=== PATIENT | male | born 1970 | race Caucasian/White ===

== ENCOUNTER 2024-06-16 19:36 | Inpatient (IN) | payer OTHER ==
[~2024-06-16] VITALS: Ht 180.3 cm; Wt 100.0 kg
[2024-06-16] MEDS: ASPIRIN 81MG TABLET PO ONE (19:56)
[2024-06-16] MEDS: NITROGLYCERIN 0.4MG TABLET SL SL PRN (19:56)
[2024-06-16] MEDS: SODIUM CHLORIDE 0.9% 1,000 ML IV ONE (19:56)
[2024-06-16] MEDS: ONDANSETRON HCL 4MG/2ML INJ IV STA (19:56)
[2024-06-16 20:13] LABS: BASOPHILS % 0.7 % (0.0-2.0); HEMATOCRIT. 45.2 % (42.0-52.0); HEMOGLOBIN. 15.5 g/dL (14.0-18.0); LYMPHOCYTES % 27.5 % (20.0-50.0); MEAN CORPUSCULAR HGB CONC 34.3 g/dL (31.0-37.0); MEAN CORPUSCULAR VOLUME 90.5 fL (80.0-94.0); MEAN PLATELET VOLUME 8.2 fl (7.4-10.4); MONOCYTES % 5.6 % (2.0-8.0); NEUTROPHILS % 65.2 % (40.0-76.0); PLATELET 255 x1000/uL (130-400); RED CELL DISTRIBUTION WIDTH 13.1 % (11.6-14.6)
[2024-06-16 20:18] LABS: CHLORIDE 105 mEq/L (98-107); POTASSIUM 3.5 mEq/L (3.5-5.1); SODIUM 140 mEq/L (136-145)
[2024-06-16 20:19] LABS: CARBON DIOXIDE 25 mEq/L (21-32)
[2024-06-16 20:24] LABS: CREATININE 1.2 mg/dL (0.6-1.3); GLUCOSE 124 mg/dL (70-105); UREA NITROGEN BLOOD 14 mg/dL (9-23)
[2024-06-16 20:28] LABS: TROPONIN I HIGH SENSITIVITY < 4 ng/L (3.0-53)
[2024-06-16 20:30] LABS: PARTIAL THROMBOPLASTIN TIME 27.3 sec (23.4-31.0); PROTHROMBIN TIME 11.2 sec (9.6-11.0)
[2024-06-16] MEDS: IOHEXOL-350 100 ML BOTTLE ONE (21:08)
[2024-06-16 22:07] LABS: TROPONIN I HIGH SENSITIVITY 4 ng/L (3.0-53)
[2024-06-16] MEDS ORDERED: NA PHOS,M-B/NA PHOS,DI-BA ENEMA 118ML PR PRN (23:30)
[2024-06-16] MEDS ORDERED: NITROGLYCERIN 0.4MG TABLET SL SL PRN (23:30)
[2024-06-16] MEDS ORDERED: CLONIDINE 0.1MG TABLET PO PRN (23:30)
[2024-06-16] MEDS ORDERED: ONDANSETRON HCL 4MG/2ML INJ IV PRN (23:30)
[2024-06-16] MEDS ORDERED: DOCUSATE SODIUM 100MG CAPSULE PO PRN (23:30)
[2024-06-16] MEDS ORDERED: MAGNESIUM/ALUMINUM HYDROXIDE/SIMETHICONE 30ML UDC PO PRN (23:30)
[2024-06-16] MEDS ORDERED: DEXTROSE 50% WATER 50ML SYRINGE IV PRN (23:30)
[2024-06-16] MEDS ORDERED: IPRATROPIUM/ALBUTEROL 0.5-3(2.5)MG/3ML NEB HHN PRN (23:30)
[2024-06-16] MEDS ORDERED: GUAIFENESIN 200MG/10ML SUGAR FREE UDC PO PRN (23:30)
[2024-06-17 01:02] LABS: PHOSPHORUS 2.3 mg/dL (2.5-4.9)
[2024-06-17 01:41] LABS: TROPONIN I HIGH SENSITIVITY < 4 ng/L (3.0-53)
[2024-06-17 03:13] LABS: BASOPHILS % 0.7 % (0.0-2.0); EOSINOPHILS % 0.7 % (0.0-5.0); LYMPHOCYTES % 24.5 % (20.0-50.0); MEAN CORPUSCULAR HEMOGLOBIN 30.8 pg (28.0-32.0); MEAN CORPUSCULAR HGB CONC 34.2 g/dL (31.0-37.0); MEAN CORPUSCULAR VOLUME 90.2 fL (80.0-94.0); MONOCYTES % 7.9 % (2.0-8.0); NEUTROPHILS % 66.2 % (40.0-76.0); PLATELET 258 x1000/uL (130-400); RED BLOOD CELL COUNT 4.88 mill/uL (4.7-6.1); RED CELL DISTRIBUTION WIDTH 13.1 % (11.6-14.6); WHITE BLOOD COUNT 9.1 x1000/uL (4.5-11.0)
[2024-06-17 03:24] LABS: CALCIUM 8.6 mg/dL (8.7-10.4); CARBON DIOXIDE 24 mEq/L (21-32); CHLORIDE 110 mEq/L (98-107); POTASSIUM 3.9 mEq/L (3.5-5.1); SODIUM 144 mEq/L (136-145)
[2024-06-17 03:29] LABS: CREATININE 0.9 mg/dL (0.6-1.3); GLUCOSE 97 mg/dL (70-105); TRIGLYCERIDE 180 mg/dL (0-150); UREA NITROGEN BLOOD 11 mg/dL (9-23)
[2024-06-17 03:30] LABS: LDL CHOLESTEROL 90 mg/dL (5-100)
[2024-06-17 03:31] LABS: CHOLESTEROL 141 mg/dL (<200); HDL CHOLESTEROL 34 mg/dL (>55)
[2024-06-17 03:32] LABS: CREATINE KINASE 177 IU/L (46-171)
[2024-06-17 03:44] LABS: TROPONIN I HIGH SENSITIVITY < 4 ng/L (3.0-53)
[2024-06-17] MEDS ORDERED: LORAZEPAM 2MG/ML INJ IV PRN (04:00)
[2024-06-17] MEDS ORDERED: FOLIC ACID 1 MG, THIAMINE HCL 100 MG, MVI, ADULT NO.1 10 ML in DEXTROSE 5% WATER 1,000 ML IV ONE (05:00)
[2024-06-17 07:40] VITALS: O2SAT 96
[2024-06-17] MEDS: PANTOPRAZOLE 40MG DR TABLET PO SCH (07:50)
[2024-06-17] MEDS: FOLIC ACID 1 MG, THIAMINE HCL 100 MG, MVI, ADULT NO.1 10 ML in DEXTROSE 5% WATER 1,000 ML IV ONE (07:54)
[2024-06-17 08:03] VITALS: RESP 17
[2024-06-17] MEDS: POTASSIUM PHOSPHATE 15 MMOL in DEXT 5% WATER 245 ML IV NR (08:32)
[2024-06-17] MEDS: BLOOD SUGAR DIAGNOSTIC STRIP TEST SCH (09:05)
[2024-06-17 14:53] VITALS: BP 124/71; PULSE 75; TEMP 97.9; O2SAT 98
== END 2024-06-17 15:01 | disposition home or self-care (01) | DRG 312 ==
LOC: ER 19:36 → MICUSO 22:45 → EDBEDREQSVC 06-17 08:21 → 5WST 06-17 10:09
PROVIDERS: ADMIT Hospitalist; ATTEND Hospitalist
DX: R55 Syncope and collapse (principal); Q22.1 Congenital pulmonary valve stenosis; F10.129 Alcohol abuse with intoxication, unspecified; I10 Essential (primary) hypertension; I51.7 Cardiomegaly; I49.8 Other specified cardiac arrhythmias; Z87.891 Personal history of nicotine dependence; Z82.49 Family history of ischemic heart disease and other diseases of the circulatory system; Y90.4 Blood alcohol level of 80-99 mg/100 ml
CPT/HCPCS: 36415; 71045; 71275; 80048; 80061; 80320; 82550; 83036; 83605; 83735; 83880; 84100; 84145; 84484; 85025; 93005; 99291; J2405; J3411; J3490; J7030; J7060; J7070; Q9967; G0480